=== PATIENT | male | born 1955 | race Caucasian/White ===

== ENCOUNTER 2016-09-07 12:40 | Observation (INO) | payer OTHER ==
[2016-09-07] MEDS ORDERED: diphenhydrAMINE 25 MG CAP PO ONE ×2 (12:48→13:12)
[2016-09-07] MEDS ORDERED: ASPIRIN EC 325 MG TAB PO ONE ×2 (12:48→13:13)
[2016-09-07] MEDS ORDERED: DIAZEPAM 5 MG TAB PO ONE (12:48)
[2016-09-07] MEDS ORDERED: NS 1,000 ML IV ONE (12:48)
[2016-09-07] MEDS ORDERED: FAMOTIDINE 20 MG TAB PO ONE (12:48)
--- NOTE | 2016-09-07 13:08 | CPEKG ---
Heart Rate: 78 RR Interval: 769 P-R Interval: 164 QRSD Interval: 132 QT Interval: 396 QTC Interval: 452 P [place]: 57 QRS [place]: 58 T Wave [place]: -12 EKG Severity - ABNORMAL ECG - EKG Impression: SINUS RHYTHM EKG Impression: RIGHT BUNDLE BRANCH BLOCK Electronically Signed By: Behzad Sheriff 08-Sep-2016 09:52:54
[2016-09-07] MEDS ORDERED: DIAZEPAM 5 MG TAB ONE (13:13)
[2016-09-07] MEDS ORDERED: FAMOTIDINE 20 MG TAB ONE (13:13)
[2016-09-07 13:33] LABS: % IMMATURE GRANULYOCYTES 0.4 % (0.0-1.1); ABSOLUTE IMMATURE GRANULOCYTES 0.02 10^3/uL (0.00-0.10); ADD DIFF? NO; ADD MORPH? NO; ADD SCAN? NO; ATYPICAL LYMPHOCYTE FLAG 0 (0-99); FRAGMENT RBC FLAG 0 (0-99); HEMATOCRIT 48.1 % (40.0-51.0); LEFT SHIFT FLG 0 (0-99); LIPEMIA HEMOLYSIS FLAG 80 (0-99); MEAN CELL HEMOGLOBIN 30.4 pg (27.9-34.1); MEAN CELL HEMOGLOBIN CONCENTR. 33.3 g/dL (32.4-36.7); MEAN CELL VOLUME 91.4 fL (81.5-99.8); MEAN PLATELET VOLUME 10.4 fL (8.7-11.7); PLATELET CLUMPS FLAG 0 (0-99); PLATELET COUNT 242 10^3/uL (150-400); RED BLOOD CELL COUNT 5.26 10^6/uL (4.40-6.38); RED CELL DISTRIBUTION WIDTH 12.4 % (11.5-15.2)
[2016-09-07 13:49] LABS: INR 1.14 (0.83-1.16); PROTIME(PATIENT) 14.5 SEC (12.0-15.0)
[2016-09-07 13:50] LABS: ANION GAP 10 mEq/L (8-16); CARBON DIOXIDE 25 mEq/l (22-31); CHLORIDE 104 mEq/L (97-110); CHOLESTEROL 149 mg/dL (140-220); CHOLESTEROL/HDL RATIO 3.39 RATIO (1.00-4.97); GLOMERULAR FILTRATION RATE > 60; GLUCOSE 94 mg/dL (70-100); HIGH DENSITY LIPOPROTEIN 44 mg/dL (40-65); LOW DENSITY LIPOPROTEIN 88 mg/dL (80-100); MAGNESIUM 2.1 mg/dL (1.6-2.3); NON-HIGH DENSITY LIPOPROTEIN 105 mg/dL (90-129); SODIUM 139 mEq/L (134-144); TRIGLYCERIDE 87 mg/dL (40-150); VERY LOW DENSITY LIPOPROTEINS 17 mg/dL (8-25)
[2016-09-07] MEDS ORDERED: HEPARIN 10,000 UNIT/10 ML MDV ONE (14:18)
[2016-09-07] MEDS ORDERED: fentaNYL 100 MCG/2 ML INJ ONE ×2 (14:18→15:21)
[2016-09-07] MEDS ORDERED: LIDOCAINE 1% 300 MG/30 ML SDV ONE (14:18)
[2016-09-07] MEDS ORDERED: MIDAZOLAM 2 MG/2 ML VIAL ONE ×2 (14:18→15:21)
[2016-09-07] MEDS ORDERED: IOPAMIDOL (ISOVUE-370) 150 ML BTL IV ONE (14:19)
[2016-09-07] MEDS ORDERED: VERAPAMIL 5 MG/2 ML VIAL ONE (14:19)
[2016-09-07] MEDS ORDERED: HYDROCODONE/APAP 5/325 TAB PO PRN (16:27)
[2016-09-07] MEDS ORDERED: NITROGLYCERIN 0.4 MG BTL SL PRN (16:27)
[2016-09-07] MEDS ORDERED: OXYCODONE/APAP 5/325 TAB PO PRN (16:27)
[2016-09-07] MEDS ORDERED: ATROPINE SULFATE 1 MG/10 ML SYR IVP PRN (16:27)
[2016-09-07] MEDS ORDERED: ONDANSETRON 4 MG/2 ML VIAL IVP PRN (16:27)
--- NOTE | 2016-09-07 16:39 | CPEKG ---
Heart Rate: 68 RR Interval: 882 P-R Interval: 180 QRSD Interval: 134 QT Interval: 424 QTC Interval: 451 P [place]: 58 QRS [place]: 67 T Wave [place]: -8 EKG Severity - ABNORMAL ECG - EKG Impression: SINUS RHYTHM EKG Impression: RIGHT BUNDLE BRANCH BLOCK Electronically Signed By: Behazd Sheriff 08-Sep-2016 09:52:58
[2016-09-07] MEDS: METOPROLOL TARTRATE 25 MG TAB PO SCH (19:43)
[2016-09-07] MEDS ORDERED: LOSARTAN POTASSIUM 50 MG TAB PO SCH (21:00)
[2016-09-08] MEDS: METOPROLOL TARTRATE 25 MG TAB PO SCH (07:36)
[2016-09-08 08:00] VITALS: BP 134/72; PULSE 67; RESP 13; TEMP 97.3; O2SAT 93
[2016-09-08] MEDS ORDERED: TAMSULOSIN HCL 0.4 MG CAP PO SCH (09:00)
[2016-09-08] MEDS ORDERED: PANTOPRAZOLE SODIUM 40 MG TAB PO SCH (09:00)
[2016-09-08] MEDS ORDERED: ROSUVASTATIN CALCIUM 10 MG TAB PO SCH (09:00)
[2016-09-08] MEDS ORDERED: ASPIRIN EC 81 MG TAB PO SCH (09:00)
--- NOTE | 2016-09-08 18:05 | GDS ---
[f rep st] DISCHARGE SUMMARY DISCHARGE DIAGNOSES: 1. Coronary artery disease: Patient presented with symptoms of dyspnea on exertion. He had a stre ss test performed for risk stratification. The stress test was notable for significant ST-segment d epression with normal myocardial profusion imaging. Patient was taken to the cardiac catheterizatio n laboratory to exclude potential balanced ischemia. Cardiac catheterization was notable for modera te 2-vessel coronary artery disease without flow limitation. Patient was started on appropriate med ical management including aspirin, metoprolol, losartan, and Crestor. 2. Hypertension: Patient has a history of hypertension. He was previously managed with losartan 1 00 mg daily. While in the hospitals, patient's blood pressures were normal to mildly elevated. He was subsequently started on metoprolol 12.5 mg twice daily in addition to his losartan. 3. Hyperlipidemia: Patient has a history of hyperlipidemia as well statin intolerance at higher do ses. Patient was on Lipitor 10 mg daily. His LDL on this dose was 88. His goal LDL would be less than 7 and hopefully closer to 50. Patient was changed from Lipitor 10 mg daily to Crestor 5 mg brenton ly. will plan on repeat FLP and LFTs in approximately 3 months' period of time to evaluate therapy. 4. Complete heart block: Patient has a history of a right bundle branch block. During left ventri culography, patient developed a temporary complete heart block. Patient's rhythm spontaneously lul jairo without intervention. He was admitted to the hospital overnight for observation. No further evidence of heart block was noted. No further management at this time. SUMMARY OF PRESENTATION AND COURSE: The patient is a 60-year-old gentleman with risk factors includ ing age, hypertension, and hyperlipidemia, who was admitted to the hospital on 09/07/2016 for electi ve cardiac catheterization to evaluate for balanced ischemia. Cardiac catheterization was notable f or moderate two-vessel coronary artery disease and preserved left ventricular systolic function. Du ring left ventriculography, patient developed a temporary complete heart block. He was subsequently admitted to the hospital for observation. Patient remained in a normal sinus rhythm without eviden ce of heart block post procedure. While in the hospital, patient was noted to be mildly hypertensiv e. Metoprolol 12.5 mg b.i.d. was added to his losartan 100 mg daily. In addition, patient's LDL/ch olesterol is noted to not be optimal. He does have a previous history of adverse drug reaction to h igher doses of Lipitor. He was changed to Crestor 5 mg daily with plans for repeat FLP and LFTs in approximately 3 months' period of time. An alternative strategy would be to use Lipitor 10 mg daily and add Zetia 10 mg daily to his regimen. Goal LDL would be less than 70 and hopefully closer to 5 0. DISCHARGE PHYSICAL EXAMINATION: GENERAL: Patient is resting comfortably in bed. He did not appear to be in acute distress. VITAL SIGNS: Temperature afebrile, pulse is 67, blood pressure 134/72, r espiratory rate 13, SaO2 93% on room air. LUNGS: Clear to auscultation bilaterally. CARDIOVASCULA R: Regular rate and rhythm. S1, S2. No murmurs, rubs, or gallops. SKIN: Left radial access site with no hematoma, no ecchymosis; 2+ radial pulse noted. ARRANGEMENTS FOR FOLLOWUP CARE: 1. Patient will follow up with Dr. Metcalf with his previously scheduled appointment. 2. Patient should have FLP and LFTs drawn in approximately 3 months' period of time to evaluate sta tin therapy. MEDICATIONS AT DISCHARGE: Please see medicine reconciliation form. SPECIAL INSTRUCTIONS: Access site precautions were given to patient and family. /[id number]/MODL
== END 2016-09-08 08:50 | disposition home or self-care (01) ==
LOC: FCATH 12:40 → F2W 16:29
PROVIDERS: ADMIT Internal Medicine Cardiovascular Disease; ATTEND Internal Medicine Cardiovascular Disease
DX: I25.10 Atherosclerotic heart disease of native coronary artery without angina pectoris (principal); I44.2 Atrioventricular block, complete; I10 Essential (primary) hypertension; E78.5 Hyperlipidemia, unspecified
CPT/HCPCS: 93005; 93458; C1769; C1887; G0378; J1644; J2250; J3010; Q9967